=== PATIENT | male | born 1985 | race African-American/Black ===

== ENCOUNTER 2018-04-09 17:36 | Emergency (ER) | payer OTHER ==
[~2018-04-09] VITALS: Ht 180.3 cm; Wt 104.3 kg
[2018-04-09] MEDS ORDERED: CYCLOBENZAPRINE5 MG PO (18:33)
[2018-04-09] MEDS ORDERED: VOLTAREN GEL 1100 G2 TOP (18:33)
[2018-04-09] MEDS ORDERED: NAPROSYN500 MG PO (18:33)
[2018-04-09 18:41] VITALS: BP 140/92
== END 2018-04-09 18:41 | disposition home or self-care (01) ==
LOC: M.ERS 17:36
DX: S13.4XXA Sprain of ligaments of cervical spine, initial encounter (principal); S29.012A Strain of muscle and tendon of back wall of thorax, initial encounter; S39.012A Strain of muscle, fascia and tendon of lower back, initial encounter; S46.811A Strain of other muscles, fascia and tendons at shoulder and upper arm level, right arm, initial encounter; V89.2XXA Person injured in unspecified motor-vehicle accident, traffic, initial encounter; Y93.89 Activity, other specified; Y92.89 Other specified places as the place of occurrence of the external cause; Y99.8 Other external cause status

== ENCOUNTER 2019-09-21 07:52 | Emergency (ER) | payer OTHER ==
[~2019-09-21] VITALS: Ht 180.3 cm; Wt 113.4 kg
[~2019-09-21 07:52] MED LIST: CYCLOBENZAPRINE5 MG PO; NAPROSYN500 MG PO; VOLTAREN GEL 1100 G2 TOP
[2019-09-21] MEDS ORDERED: BACTRIM DS TAB1 EAC1 PO (08:40)
[2019-09-21] MEDS ORDERED: MICONAZOLE NITR45 G3 TOP (08:40)
[2019-09-21] MEDS ORDERED: DIFLUCAN150 M1 PO (08:40)
[2019-09-21 08:48] VITALS: BP 147/96
== END 2019-09-21 08:49 | disposition home or self-care (01) ==
LOC: M.ERS 07:52
DX: B35.6 Tinea cruris (principal); F17.210 Nicotine dependence, cigarettes, uncomplicated

== ENCOUNTER 2021-01-31 16:25 | Emergency (ER) | payer OTHER ==
[~2021-01-31] VITALS: Ht 180.3 cm; Wt 111.1 kg
[~2021-01-31 16:25] MED LIST changes: +BACTRIM DS TAB1 EAC1 PO; +DIFLUCAN150 M1 PO; +MICONAZOLE NITR45 G3 TOP
[2021-01-31 17:04] LABS: URINE BLOOD 1+ (Negative); URINE COLOR YELLOW; URINE GLUCOSE-RANDOM NEGATIVE (Negative); URINE KETONES TRACE (Negative); URINE LEUKOCYTES-REFLEX NEGATIVE (Negative); URINE NITRITE-REFLEX NEGATIVE (Negative); URINE PROTEIN NEGATIVE (Negative); URINE SPECIFIC GRAVITY >= 1.030 (1.005-1.030); URINE UROBILINOGEN 0.2 E.U./dl (0.2-1.0)
[2021-01-31 17:05] LABS: ABSOLUTE BASOPHILS 0.1 thou/uL (0.0-0.2); ABSOLUTE EOSINOPHILS 0.1 thou/uL (0.0-0.7); ABSOLUTE LYMPHOCYTES 1.8 thou/uL (0.8-5.3); ABSOLUTE MONOCYTES 0.3 thou/uL (0.0-1.2); BASOPHILS 0.9 %; EOSINOPHILS 1.3 %; HEMATOCRIT 43.3 % (42.0-52.0); HEMOGLOBIN 15.1 gm/dL (14.0-18.0); LYMPHOCYTES 22.2 %; MCH 31.9 pg (26.0-34.0); MCHC 34.8 g/dL (28.0-37.0); MCV 91.5 fL (80.0-100.0); MONOCYTES 3.2 %; MPV 7.5 fl. (7.2-11.1); NUCLEATED RBCS 0 /100WBC; PLATELET COUNT* 212 thou/uL (150-400); POLYS 72.4 %; RBC 4.73 mil/uL (4.50-6.00); RDW-CV 14.7 % (10.5-14.5); WBC 8.2 thou/uL (4.0-11.0)
[2021-01-31 17:11] LABS: CREATININE 1.1 mg/dL (0.6-1.3); POTASSIUM 3.8 mmol/L (3.5-5.1)
[2021-01-31 17:14] LABS: ICTOTEST (BILI CONFIRMATORY) Negative (Negative); URINE BILIRUBIN 1+ (Negative); URINE CLARITY HAZY
[2021-01-31 17:15] LABS: BACTERIA-REFLEX None Seen /HPF (None Seen); CASTS None Seen /LPF (None Seen); CRYSTALS None Seen /LPF (None Seen); MUCUS >6 Heavy strn/LPF (None Seen); SQUAMOUS 0-3 Few /LPF (0-3); URINE RBC 0-2 Rare /HPF (0-2); URINE WBC-REFLEX None Seen /HPF (0-5)
[2021-01-31 17:20] LABS: TOTAL BILIRUBIN 0.4 mg/dL (<0.1-1.0); TOTAL PROTEIN 7.6 g/dL (6.4-8.2)
[2021-01-31] MEDS ORDERED: OMEPRAZOLE 20 M20 M1 PO (19:23)
[2021-01-31] MEDS ORDERED: PEPCID20 MG PO (19:23)
[2021-01-31] MEDS ORDERED: TRAMADOL 50 MG50 MG PO (19:33)
[2021-01-31 19:40] VITALS: BP 124/85
== END 2021-01-31 19:40 | disposition home or self-care (01) ==
LOC: M.ERS 16:25
PROVIDERS: Physician Assistant
DX: R10.13 Epigastric pain (principal); R11.0 Nausea; R19.7 Diarrhea, unspecified